=== PATIENT | female | born 1955 | race Two or more races ===

== ENCOUNTER → 2024-07-19 | Outpatient (CLI) | payer OTHER, SELFPAY ==
[2024-07-19 11:19] LABS: Glucose Estimated Average 131 mg/dL (80-131); Hemoglobin A1C 6.2 % Hgb (4.8-6.0)
[2024-07-19 11:26] LABS: Alanine Aminotransferase 32 U/L (10-49); Albumin, Serum 4.3 gm/dL (3.4-4.8); Albumin/Globulin Ratio 1.9 (1.2-2.2); Alkaline Phosphatase 101 U/L (46-116); Anion Gap 5 (7-16); Aspartate Amino Transferase 23 U/L (0-34); BUN/Creatinine Ratio 24 Ratio (12-20); Bilirubin,Total 0.6 mg/dL (0.3-1.2); Blood Urea Nitrogen 12 mg/dL (9-23); Carbon Dioxide 27.6 mMol/L (20.0-31.0); Cardiac Risk Estimate 4.5 RATIO (3.7-5.6); Chloride 100 mMol/L (98-107); Cholesterol 321 mg/dL (132-200); Creatinine (Component) 0.5 mg/dL (0.6-1.3); Globulin 2.3 gm/dL (2.3-3.5); Glucose 130 mg/dL (74-106); HDL Cholesterol 72 mg/dL (40-60); LDL Cholesterol,Calculated 225 mg/dL (0-130); Osmolality,Calculated 268 (275-295); Potassium 4.3 mMol/L (3.4-5.1); Sodium 133 mMol/L (136-145); Thyroid Stimulating Hormone 0.56 uIU/mL (0.55-4.78); Total Protein 6.6 gm/dL (5.7-8.2); Triglycerides 121 mg/dL (30-150); eGFR > 60 See Note
[2024-07-19 11:28] LABS: Creatinine MALB Rnd Ur 35 mg/dL (30-125); Microalbumin, Random Urine < 3 mg/L (0-300)
== END | disposition home or self-care (01) ==
PROVIDERS: PCP Internal Medicine; Referring Provider Internal Medicine; Visit Provider Internal Medicine
DX: E03.9 Hypothyroidism, unspecified (principal); I10 Essential (primary) hypertension; E78.5 Hyperlipidemia, unspecified; E11.9 Type 2 diabetes mellitus without complications
CPT/HCPCS: 36415; 80053; 80061; 82043; 82570; 83036; 84443

== ENCOUNTER 2024-08-08 08:35 | Outpatient (RCR) | payer OTHER, MEDICAID, SELFPAY ==
--- NOTE | 2024-08-08 13:29 | CTCCONSULT_ITS ---
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 Patient is here to establish care. Patient says th at she does not know why she is sent here when she is told she does not have cancer. Patient denies any family history of breast cancer. 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 GI: No nausea, vomiting, diarrhea or constipation. CVS: No palpitations or angina pains. Respiratory: No cough, chest pain or shortness of breath. VITAL SIGNS: Date 08/08/2024 Time 8:52 AM Vital Signs, Weight and PS ? ??T (F) (F) 98.9 ??P 65 ??B/P (mmHg) 120/58 ??Height (in) (inch) 60 ??Weight (lb) (lb) 142 ??BSA(D) (m*2) 1.61 PHYSICAL EXAMINATION: Conjunctivae is white. Oral cavity is dry. Chest is clear to auscultation. No wheezes or rales audible. CVS: Rhythm regular, no murmurs or gallops present. Abdomen is soft. No hepatosplenomegaly. Extremities: No pedal edema or cyanosis. Breast examination no palpable mass in chest area or axilla suspicious for cancer LABORATORY DATA: Date Time ASSESSMENT and plan: #1 papilloma in the breast Patient have solitary papilloma There was no atypia noted Patient have no self or family history of breast cancer I reviewed pathology report available in the chart. Patient have a solitary papilloma and there was no atypia or DCIS noted There is no antiendocrine therapy indicated in this case Advised patient to get screening mammograms every year Patient can follow-up with her primary care Thank you for your consultation ORDERS: RETURN TO CLINIC: Discharged back to primary care cc: RONEL GAUTHIER, Referring: NIEVES GAUTHIER Electronically signed by Dr. De Oliveira Electronically Signed 08/08/2024 at 1:27 PM Momo De Oliveira MD Patient: ARTURO QUINTERO : 1955 MR#: [id number] Account: [id number] FOLLOW UP NOTE Page 4 of 4
== END 2024-08-17 23:59 | disposition home or self-care (01) ==
LOC: SCTC 08:35
PROVIDERS: PCP Internal Medicine; Referring Provider Internal Medicine; Visit Provider Internal Medicine Hematology & Oncology
DX: D24.2 Benign neoplasm of left breast (principal)
CPT/HCPCS: 99213; G0463

== ENCOUNTER → 2024-12-24 | Outpatient (CLI) | payer MEDICARE, MEDICAID, SELFPAY ==
[2024-12-24 10:07] LABS: Collection Type, Urine Clean Catch
[2024-12-24 10:44] LABS: Basophils # (Auto) 0.1 Thou/mm3 (0.0-0.2); Basophils % (Auto) 1 % (0-2.5); Eosinophils # (Auto) 0.2 Thou/mm3 (0.0-0.5); Eosinophils % (Auto) 2 % (0-10); Hematocrit 38.1 % (36.0-46.0); Hemoglobin 13.1 g/dL (12.0-16.0); Immature Granulocytes % (Auto) 0 % (0-0); Immature Granulocytes Auto 0.01 Thou/mm3 (0.00-0.00); Lymphocytes # (Auto) 2.8 Thou/mm3 (1.0-4.8); Lymphocytes % (Auto) 36 % (10-50); Mean Corpuscular HGB Conc 34.4 g/dl (31.0-37.0); Mean Corpuscular Hemoglobin 30.3 pg (25.0-35.0); Mean Corpuscular Volume 88 fL (80-100); Monocytes # (Auto) 0.6 Thou/mm3 (0.0-0.8); Monocytes % (Auto) 8 % (0-12); Neutrophils % (Auto) 52 % (37-80); Nucleated Red Blood Cell % 0 /100 WBC (0); Platelet Count 244 Thou/mm3 (140-440); RDW Standard Deviation 42.7 fL (36.4-46.3); Red Blood Count 4.33 Miln/mm3 (4.00-5.20); White Blood Count 7.6 Thou/mm3 (3.6-11.0)
[2024-12-24 10:55] LABS: Bilirubin,Urine Negative (Negative); Blood,Urine Negative (Negative); Clarity,Urine Clear (Clear/Hazy); Color,Urine Lt-Yellow (Lt Yel-Yel); Glucose, Urine Negative (Negative); Ketones,Urine Negative (Negative); Leukocyte Esterase,Urine Negative (Negative); Nitrite,Urine Negative (Negative); PH,Urine 7.5 (5.0-7.0); Protein,Urine Negative (Neg - Trace); RBC,Urine 2 /hpf (0-3); Specific Gravity,Urine 1.016 (1.001-1.035); Squamous Epithelial Cell,Urine 6 /hpf (0-5); Urobilinogen,Urine Negative mg/dL (0.0-1.0); WBC,Urine 2 /hpf (0-5)
[2024-12-24 10:59] LABS: Glucose Estimated Average 123 mg/dL (80-131); Hemoglobin A1C 5.9 % Hgb (4.8-6.0)
[2024-12-24 11:06] LABS: Vitamin B12 800 pg/mL (211-911); Vitamin D 25 Hydroxy Total 38.6 ng/mL (7.3-40.2)
[2024-12-24 12:10] LABS: Alanine Aminotransferase 16 U/L (10-49); Albumin, Serum 3.9 gm/dL (3.4-4.8); Albumin/Globulin Ratio 1.8 (1.2-2.2); Alkaline Phosphatase 102 U/L (46-116); Anion Gap 8 (7-16); Aspartate Amino Transferase 15 U/L (0-34); BUN/Creatinine Ratio 28 Ratio (12-20); Bilirubin,Total 0.9 mg/dL (0.3-1.2); Blood Urea Nitrogen 11 mg/dL (9-23); Calcium 9.2 mg/dL (8.3-10.6); Calcium (Corrected) 9.3 mg/dL (8.5-10.1); Carbon Dioxide 28.3 mMol/L (20.0-31.0); Cardiac Risk Estimate 3.5 RATIO (3.7-5.6); Chloride 102 mMol/L (98-107); Cholesterol 272 mg/dL (132-200); Creatinine (Component) 0.4 mg/dL (0.6-1.3); Globulin 2.2 gm/dL (2.3-3.5); Glucose 98 mg/dL (74-106); HDL Cholesterol 77 mg/dL (40-60); LDL Cholesterol,Calculated 169 mg/dL (0-130); Osmolality,Calculated 275 (275-295); Sodium 138 mMol/L (136-145); Thyroid Stimulating Hormone 0.78 uIU/mL (0.55-4.78); Total Protein 6.1 gm/dL (5.7-8.2); Triglycerides 132 mg/dL (30-150); Uric Acid 4.1 mg/dL (3.1-7.8); eGFR > 60 See Note
== END | disposition home or self-care (01) ==
PROVIDERS: PCP Internal Medicine; Referring Provider Internal Medicine; Visit Provider Internal Medicine
DX: Z00.00 Encounter for general adult medical examination without abnormal findings (principal)
CPT/HCPCS: 36415; 80053; 80061; 81001; 82306; 82607; 83036; 84443; 84550; 85025

== ENCOUNTER 2025-04-07 00:56 | Inpatient (IN) | payer MEDICARE, MEDICAID, SELFPAY ==
[2025-04-07] VITALS (9 sets, daily range): BP systolic 125–165; BP diastolic 61–86; PULSE 58–82; RESP 16–88; TEMP 36.2–37.5; O2SAT 91–97; BMI 27.3; BMI 28.2
--- NOTE | 2025-04-07 | XR_ITS ---
Examination: Abdomen AP single view Technique: AP portable supine abdomen, single view Exam date and time: April 07, 2025, 1622 hours INDICATIONS: Abdominal pain and distention this week, 6 hour delayed film for small bowel series today. FINDINGS: Contrast distended small bowel loops There is contrast in the right and transverse colon IMPRESSION: Small bowel obstruction but incomplete
--- NOTE | 2025-04-07 | XR_ITS ---
Examination: Abdomen AP single view Technique: AP portable supine abdomen, single view Exam date and time: April 07, 2025 1429 hours INDICATIONS: Abdominal pain and distention this week, small bowel obstruction pattern on CT abdomen pelvis 3:25 AM this morning, 4 hour delayed film post small bowel series FINDINGS: Contrast now present throughout the colon IMPRESSION: Negative for complete small bowel obstruction, no further films are needed
--- NOTE | 2025-04-07 | XR_ITS ---
Examination: Abdomen AP single view Technique: AP portable supine abdomen, single view Exam date and time: April 07, 2025 1234 hours INDICATIONS: Abdominal distention today, 3 hour delayed film post small bowel series today FINDINGS: Contrast in mildly distended jejunal small bowel loops IMPRESSION: Contrast in mildly distended jejunal small bowel loops, multiple additional delayed films will be obtained
--- NOTE | 2025-04-07 01:41 | PD.EDABDPN ---
ED Abdominal Pain RME/HPI General Chief Complaint: Abdominal Pain Stated complaint: ABD PAIN AND VOMITING Time seen by provider: 04/07/25 01:43 Arrival date/time: 04/07/25 00:56 RME / HPI RME / HPI narrative: This section includes all my notes and documentations, including HPI, PE, and ED course. Fausto Nicole MD HPI: 69yo female here with abdominal pain x the last few hours. Difficult to localize. Patient does have nausea and vomiting. No diarrhea. PSH includes hysterectomy. No hematemesis or coffee-ground emesis. No rectal bleeding or tarry stools. No other complaints reported. ROS: All negative except as documented in HPI. Physical Exam: General: Alert and oriented. In severe pain. Eyes: Conjunctivae and lids clear. ENT: No nasal congestion. Neck: Supple. Heart: RRR. Lungs: No respiratory distress. Good air movement. No rhonchi, wheezing, rales. Abdomen: Soft with severe tenderness, difficult to localize. Decreased bowel sounds. No distension. No rebound or guarding. Back: No CVA tenderness. Skin: Warm and dry. Neuro: Alert and oriented X 3. I reviewed all diagnostic test results. My review of the US gallbladder report is: Cholecystitis. My review of the CT abdomen pelvis report is SBO. Blood and urine test unremarkable. At this point, diagnoses include SBO (small bowel obstruction), Cholecystitis. Treatment here included Morphine, Zofran, Zosyn, and NS. Patient felt better. I discussed the case with our general surgeon, Dr. Ford, and our hospitalist. About the presentation and exam and diagnostics and treatments here. And need of further care in the hospital. Will accept the patient. Fausto Nicole MD Related Data Home Medications ?Medication ?Instructions ?Recorded ?Confirmed Levothyroxine * (SYNTHROID *) 25 mcg PO QDAY HYPOTHYROID #0 tabs 03/10/14 06/28/24 atorvastatin 20 mg tablet 20 mg PO QDAY 06/28/24 06/28/24 dicyclomine 10 mg capsule 10 mg PO DAILY PRN Abdominal 06/28/24 06/28/24 Distention semaglutide 0.25 mg or 0.5 mg (2 0.25 mg subcut QWEEK 06/28/24 06/28/24 mg/3 mL) subcutaneous pen injector ([employer]) valsartan 80 mg tablet 80 mg PO QDAY 06/28/24 06/28/24 valacyclovir 1 gram tablet 1 mg PO QDAY 07/02/24 07/02/24 Allergies Allergy/AdvReac Type Severity Reaction Status Date / Time No Known Allergies Allergy Verified 07/02/24 11:43 Review of Systems Review of Systems Systems Reviewed: All systems reviewed, normal except as documented Past Medical History Past Medical History NEUROLOGIC: Negative Neurological Disorders or Seizures CARDIAC: Positive Cardiac Disorders, Hypercholesterolemia, Hypertension and Varicose Veins; Negative Congestive Heart Failure RESPIRATORY: Negative Chronic Obstructive Pulmonary Disease (COPD) GASTROINTESTINAL: Positive Gastrointestinal Disorders and Colitis GENITOURINARY: Negative Genitourinary Disorders or Renal Disease REPRODUCTIVE: Positive Genital Herpes and Previous Pregnancies MUSCULOSKELETAL: Positive Musculoskeletal Disorders and Arthritis ENT: Positive Cataracts ENDOCRINE: Positive Endocrine Disorders and Diabetes Mellitus Type 2; Negative Diabetes Mellitus Type 1 HEMATOLOGIC: Negative Blood Disorders OTHER HISTORY: Positive Hospitalization (surgery); Negative Autoimmune Disease, Shingles, Blood Transfusions, Blood Transfusion Reaction, Anesthesia Reactions or Cancer Family History FAMILY HISTORY: Positive Family Cardiac Disorders, Family Cancer and Family Surgery; Negative Family Psychiatric Problems, Family Respiratory Disorders, Family Gastrointestinal Problems or Family Anesthesia Reaction Surgical History SURGICAL: Positive Bowel Surgery (colon resection) and Hysterectomy (with BSO) Social History SMOKING STATUS: Never smoker ED Exam Narrative Physical exam: As noted in HPI. Course Quality Measures none Orders Category Date Time Status Bedside COVID-19 Antigen Test NOW Care 04/07/25 01:44 Completed Bedside Influenza A&B Antigen Test NOW Care 04/07/25 01:44 Completed COVID-19 Screening Questionnaire NOW Care 04/07/25 04:30 Active Decision to Admit X1 Care 04/07/25 04:30 Completed Insert NG / OG tube NOW Care 04/07/25 04:31 Active Saline [Insert IV] NOW Care 04/07/25 01:44 Active Consult to General Surgery Stat Cons 04/07/25 04:[address] abdomen pelvis wo con Stat Exams 04/07/25 01:44 Taken US gall bladder Stat Exams 04/07/25 01:44 Taken Bilirubin,Direct Stat Lab 04/07/25 01:51 Completed CBC Stat Lab 04/07/25 01:51 Completed CMP [Comprehensive Metabolic Panel] Stat Lab 04/07/25 01:51 Completed Lipase Stat Lab 04/07/25 01:51 Completed Magnesium Stat Lab 04/07/25 01:51 Completed UA, C/S IF [Urinalysis, C/S if Indicated] Stat Lab 04/07/25 01:50 Completed Morphine Inj Med 04/07/25 01:44 Discontinued 4 mg IVP X1 ONE Ondansetron Inj [Zofran Inj] Med 04/07/25 01:44 Discontinued 4 mg IVP X1 ONE Piper/Tazo 3.375 gm Premix [Zosyn] Med 04/07/25 03:58 Discontinued 3.375 gm in 50 ml IV X1 Sodium Chloride 0.9% 1000 ml [Ns] 1,000 ml Med 04/07/25 01:44 Discontinued IV 999 mls/hr Oxygen Delivery PRN RT 04/07/25 02:04 Active Vital Signs Vital signs: Vital Signs Temperature 99.5 F 04/07/25 01:07 Pulse Rate 82 04/07/25 01:07 Respiratory Rate 18 04/07/25 01:07 Blood Pressure 165/81 H 04/07/25 01:07 Pulse Oximetry (%) 95 04/07/25 01:07 Oxygen Delivery Method Room Air 04/07/25 01:07 Abdominal Pain MDM MDM Narrative MDM Narrative:: 69yo female here with abdominal pain x the last few hours. Difficult to localize. Patient does have nausea and vomiting. No diarrhea. PSH includes hysterectomy. No hematemesis or coffee-ground emesis. No rectal bleeding or tarry stools. No other complaints reported. Patient data External records reviewed:: [facility] previous records (Per chart review, patient has no previous ED visits or admissions to this facility.) Clinical information provided by:: patient Social determinants that could affect healthcare access:: none Patient has the following chronic illnesses:: DM, HTN, HLD How is presenting disease/condition affected by chronic disease/condition?: uneffected by Evaluation data The following diagnostics were reviewed and interpreted by me:: lab results and radiology exam(s) Lab and/or radiology exams considered but not ordered:: none Interpretation Summary: I reviewed all diagnostic test results. My review of the US gallbladder report is: Cholecystitis. My review of the CT abdomen pelvis report is SBO. Blood and urine test unremarkable. Medications / Prescriptions Medications or Prescriptions considered but not ordered:: none Medication administrations:: Medication Administration History Discontinued Medications Sodium Chloride (Ns) 1,000 mls @ 999 mls/hr IV .Q1H1M ONE Stop: 04/07/25 02:44 Last Infusion: 04/07/25 02:53 Dose: Infused Documented By: Admin: 04/07/25 01:57 Dose: 999 mls/hr Documented By: BD Piperacillin/Tazobactam/Dextrose (Zosyn) 3.375 gm in 50 mls @ 100 mls/hr IV X1 ONE Stop: 04/07/25 04:27 Last Admin: 04/07/25 04:22 Dose: 100 mls/hr Documented By: CVL Morphine Sulfate (Morphine Sulf Inj 10 Mg/Ml Vial) 4 mg IVP X1 ONE Stop: 04/07/25 01:45 Last Admin: 04/07/25 01:58 Dose: 4 mg Documented By: BD Ondansetron HCl (Ondansetron Inj 2 Mg/Ml Inj 2 Ml) 4 mg IVP X1 ONE; Protocol Stop: 04/07/25 01:45 Last Admin: 04/07/25 01:58 Dose: 4 mg Documented By: BD Morphine, Zofran, Zosyn, NS, NG tube. Consultations Consultation(s) initiated? (list below): Yes Consultation #1 (Physician, Specialty, Details): I discussed the case with our general surgeon, Dr. Ford, and our hospitalist. About the presentation and exam and diagnostics and treatments here. And need of further care in the hospital. Will accept the patient. Diagnosis Differential diagnosis abdominal pain: acute appendicitis, calculus of kidney, constipation, diverticulitis, gastroenteritis, pancreatitis, small bowel obstruction and other (Biliary colic, PUD, gastritis, GERD) Most likely diagnosis given after review of the tests above:: SBO (small bowel obstruction), Cholecystitis Admission Indicated Admission indicated?: indicated Explain why admission is indicated or not indicated:: SBO (small bowel obstruction), Cholecystitis Admission Request Was there a request for admission?: Yes Admission Attestation Admission request attestation: Discussed case with Hospitalist service regarding admission. Discussed patients ED course, exam findings, labs, and radiology results. The Hospitalist [agrees] to accept the patient for admission. Disposition Plan Disposition Plan: Admit Discharge Plan Plan Patient Disposition: Admit Acute Care w/in Hospital Prescriptions/Referrals Prescriptions/Med Rec: No Action Levothyroxine * (SYNTHROID *) 25 MCG tablet 25 mcg PO QDAY Qty: 0 atorvastatin 20 mg Tablet 20 mg PO QDAY valsartan 80 mg Tablet 80 mg PO QDAY dicyclomine 10 mg Capsule 10 mg PO DAILY PRN (Reason: Abdominal Distention) Ozempic 0.25 mg or 0.5 mg (2 mg/3 mL) pen injector 0.25 mg SUBCUT QWEEK Patient Comments: INJECT 0.5MG SUBCUTANEOUSLY ONCE WEEKLY valacyclovir 1 gram tablet 1 mg PO QDAY Patient Comments: TAKE 1 TABLET BY MOUTH EVERY DAY Referrals: No Primary/Family,Physician [Primary Care Provider] - In 1 week Problem List Clinical Impression: SBO (small bowel obstruction), Cholecystitis Patient/Caregiver Discharge Instructions Print Language: Portuguese Stand Alone Forms: Essie Award Info., Patient Portal Info Letter
--- NOTE | 2025-04-07 01:44 | XR_ITS ---
Examination: Abdomen sonogram, Limited Date and time of exam: April 07, 2025, 0206 hours INDICATIONS: Right upper abdominal pain and vomiting today Technique: Real-time egan scale transabdominal sonographic images of the upper abdomen obtained. Findings: Normal gallbladder Normal common bile duct 0.4 cm Pancreatic head 3.1 cm Liver 13.1 cm 5.6 cm complex cystic lesion with septations Normal hepatopedal portal venous flow Patent IVC IMPRESSION: Recommend MRI abdomen follow up pre and postcontrast to assess complex cystic mass in the liver
--- NOTE | 2025-04-07 01:44 | XR_ITS ---
Examination: CT abdomen and pelvis without contrast. Coronal 3-D reconstructions. Sagittal 2-D reconstructions. Date and time of exam:April 07, 2025, 0325 hours INDICATIONS: Abdominal pain and vomiting onset today. CTDI: vol (mGy): 7.61 DLP: (mGycm): 429. Technique: Axial images of the abdomen have been obtained, 3 mm slice thickness Intravenous contrast material has not been administered. Low dose protocols were performed. One or more of the following dose reduction techniques were used; automated exposure control, adjustment of the mA and/or KV according to patient size, use of iterative reconstruction technique. Findings: Prominent vascular congestion 34 mm low-density liver lesion No gallstones Spleen not enlarged No pancreatic mass No hydronephrosis Multiple fluid distended small bowel loops No pericecal inflammatory change Urinary bladder intact Bilateral fat-containing inguinal hernias Prominent osteopenia IMPRESSION: Recommend MRI abdomen follow up pre and post contrast to assess complex cystic lesion in the liver High-grade small bowel obstruction pattern
[2025-04-07] MEDS: SODIUM CHLORIDE 0.9% 1000 ML 1,000 ML 999 ML IV (01:57)
[2025-04-07] MEDS: MORPHINE SULF INJ 10 MG/ML VIAL 4 MG IVP (01:58)
[2025-04-07] MEDS: ONDANSETRON INJ 2 MG/ML INJ 2 ML 4 MG IVP ×2 (01:58→10:55)
[2025-04-07 02:04] LABS: Collection Type, Urine Clean Catch
[2025-04-07 02:06] LABS: Basophils # (Auto) 0.1 Thou/mm3 (0.0-0.2); Basophils % (Auto) 1 % (0-2.5); Eosinophils # (Auto) 0.1 Thou/mm3 (0.0-0.5); Eosinophils % (Auto) 1 % (0-10); Hematocrit 43.1 % (36.0-46.0); Hemoglobin 14.5 g/dL (12.0-16.0); Immature Granulocytes Auto 0.03 Thou/mm3 (0.00-0.00); Lymphocytes # (Auto) 2.4 Thou/mm3 (1.0-4.8); Lymphocytes % (Auto) 20 % (10-50); Mean Corpuscular HGB Conc 33.6 g/dl (31.0-37.0); Mean Corpuscular Hemoglobin 30.1 pg (25.0-35.0); Mean Corpuscular Volume 89 fL (80-100); Monocytes # (Auto) 0.7 Thou/mm3 (0.0-0.8); Monocytes % (Auto) 6 % (0-12); Neutrophils # (Auto) 8.6 Thou/mm3 (1.8-7.7); Neutrophils % (Auto) 72 % (37-80); Nucleated Red Blood Cell # 0.00 Thou/mm3 (0.00-0.00); Nucleated Red Blood Cell % 0 /100 WBC (0); Platelet Count 210 Thou/mm3 (140-440); RDW Standard Deviation 43.8 fL (36.4-46.3); Red Blood Count 4.82 Miln/mm3 (4.00-5.20); White Blood Count 11.9 Thou/mm3 (3.6-11.0)
[2025-04-07 02:13] LABS: Amorphous Crystals,Urine Present (Absent); Bilirubin,Urine Negative (Negative); Blood,Urine Negative (Negative); Clarity,Urine Turbid (Clear/Hazy); Color,Urine Lt-Yellow (Lt Yel-Yel); Culture Indicated,Urine Not Indicated; Glucose, Urine Negative (Negative); Ketones,Urine Negative (Negative); Leukocyte Esterase,Urine Negative (Negative); Nitrite,Urine Negative (Negative); PH,Urine 8.0 (5.0-7.0); Protein,Urine Trace (Neg - Trace); RBC,Urine 1 /hpf (0-3); Specific Gravity,Urine 1.020 (1.001-1.035); Squamous Epithelial Cell,Urine 6 /hpf (0-5); Urobilinogen,Urine Negative mg/dL (0.0-1.0); WBC,Urine 2 /hpf (0-5)
[2025-04-07 02:31] LABS: Alanine Aminotransferase 24 U/L (10-49); Albumin, Serum 4.4 gm/dL (3.4-4.8); Albumin/Globulin Ratio 1.8 (1.2-2.2); Alkaline Phosphatase 97 U/L (46-116); Anion Gap 11 (7-16); Aspartate Amino Transferase 20 U/L (0-34); BUN/Creatinine Ratio 28 Ratio (12-20); Bilirubin,Direct 0.1 mg/dL (0.0-0.3); Bilirubin,Total 0.6 mg/dL (0.3-1.2); Blood Urea Nitrogen 17 mg/dL (9-23); Calcium 9.3 mg/dL (8.3-10.6); Calcium (Corrected) 9.3 mg/dL (8.5-10.1); Carbon Dioxide 29.6 mMol/L (20.0-31.0); Chloride 102 mMol/L (98-107); Creatinine (Component) 0.6 mg/dL (0.6-1.3); Estimated Creatinine Clearance 74.7 mL/min (>60); Globulin 2.4 gm/dL (2.3-3.5); Glucose 161 mg/dL (74-106); Lipase 25 U/L (12-53); Magnesium 1.9 mg/dL (1.6-2.6); Osmolality,Calculated 289 (275-295); Potassium 3.7 mMol/L (3.4-5.1); Sodium 143 mMol/L (136-145); Total Protein 6.8 gm/dL (5.7-8.2); eGFR > 60 See Note
--- NOTE | 2025-04-07 03:25 | PRELIM_ITS ---
Right upper quadrant abdominal ultrasound with Doppler and wave Doppler spectral analysis. April 07, 2025 0206 hours Clinical history: RUQ tenderness Technique: Grayscale and color flow images of the right upper quadrant are provided. Hepatic and portal veins were also imaged with color flow images. Comparison: None. Findings: The liver is normal in echogenicity. Hypoechoic lesion in the right liver measures 5.6 x 4.3 x 4.6 cm. No intrahepatic biliary ductal dilatation. Gallbladder wall thickening. No gallbladder calculus or pericholecystic fluid is demonstrated. The common bile duct is normal in caliber at 4.2 mm. Mildly hy perechoic pancreas. The imaged portions of the right kidney are within normal limits. The portal vein is patent with hepatopetal flow normal with Doppler spectral analysis. The IVC is patent. The hepatic veins are patent. Casper sign is not available at the time of this report. Impression: Complex cystic lesion in the liver, correlation with MRI for characterization is recommended. Gallbladder wall thickening, acute cholecystitis cannot be excluded. Mildly hyperechoic pancreas suspicious for pancreatitis. Please, correlate clinically. Report Electronically Signed By: Junaid Woo 04/07/2025 3:24:48 AM [EST]
[2025-04-07] MEDS: PIPER/TAZO 3.375 GM PREMIX 3.375 GM/50 ML BAG IV (04:22)
--- NOTE | 2025-04-07 04:28 | PRELIM_ITS ---
CT scan of the abdomen and pelvis without intravenous contrast (axial sections with sagittal and coronal reformats); dated April 07, 2025 at 0325 hours Clinical History: Abdominal pain. Comparison: None. Findings: The lung bases are clear. The gallbladder, pancreas, spleen, kidneys and adrenals are unremarkable on this noncontrast study. Hypodense right liver lobe lesion measuring 5.2 cm. Dilated small bowel loops measuring up to 4.4 cm with air-fluid levels within and transition point in the pelvis. S/p hysterectomy. No evidence of appendicitis. There is no mesenteric or retroperitoneal adenopathy. The urinary bladder is nondistended, limited evaluation. There is no free fluid or free air. The osseous structures are unremarkable. Bilateral fat-containing inguinal hernias without evidence of inflammation. Impression: Small bowel obstruction. Indeterminate hypodense liver lesion, follow-up with MRI for characterization is recommended. Discussion Details: Results verbally communicated to : Dr. Nicole at 04:24 AM 04/07/2025 Report Electronically Signed By: Junaid Woo 04/07/2025 4:28:23 AM [EST]
--- NOTE | 2025-04-07 04:59 | PD.RESHP ---
Documentation for date of: 04/07/25 HPI History of Present Illness Chief complaint: Abdominal pain History of present illness: 69-year-old female with past medical history of dts-rcsikcw-pqtcsdddc type 2 diabetes, hypertension, hypothyroidism, diverticulosis presenting to the ED on 04/07 with abdominal pain. Patient states that the pain started on roughly 1 week ago but at that time the pain was not as severe as it is currently. Patient states that initially she just drank tea which alleviated her symptoms; however, on the afternoon of 04/06 she started experiencing severe abdominal pain which she rates at 9 out of 10. Patient states that her last bowel movement was sometime around 6 PM and that she has yet to pass any gas since that episode. Patient has been having vomiting episodes associated with the pain; states that she has vomited roughly anywhere from 5-10 times tonight. Patient denies having any diarrhea, fever/chills, melena, hematochezia, hematemesis. Of note, patient has significant history of intra-abdominal surgeries with bowel resection about 10 years ago with 1 month of requiring colostomy, hysterectomy about 30 years ago. Patient denies having any significant family history of colorectal cancer and otherwise denies having any concerning cardiac symptoms. Patient also has been on Ozempic (does not know dose) for about 4 months. Medical history: As stated above Surgical history: As stated above, also patient has history of breast mass but denies breast cancer Allergies: NKDA Medications: Pending med rec Family history: Patient's brother has history of prostate cancer, significant family history of coronary artery disease with parent having CABG Social history: Patient currently works in the [employer], denies any alcohol, tobacco or illicit drug use. Patient lives in [place] and lives alone. ROS: All 12 systems assessed and the patient denies unless otherwise stated in HPI In the ED, patient presented hypertensive 165/81, heart rate of 82, respiratory rate 18, mildly febrile at 99.5 ?F but saturating 95 on room air. Pertinent lab findings included WBC of 11.9, glucose 161, magnesium 1.9, T. bili 0.6, AST 20, ALT 24, lipase of 25. Urinalysis does not show any signs of infection. Ultrasound of the abdomen shows complex cystic lesion in the liver, gallbladder wall thickening and mildly hyper echoic pancreas. CT abdomen pelvis shows small bowel obstruction and hypodense liver lesion. Patient will be admitted for small bowel obstruction and will have NG tube placed for bowel decompression and surgery consulted for recommendations. Exam Vital Signs Temp Pulse Resp BP Pulse Ox O2 Del Method 97.8 F 58 L 18 152/85 H 97 Room Air 04/07/25 04:09 04/07/25 04:09 04/07/25 04:09 04/07/25 04:09 04/07/25 04:09 04/07/25 04:09 Narrative Exam Physical Exam: GENERAL: Awake, answering questions appropriately, appears stated age HEENT: NC/AT. Moist mucosa. PERRLA/EOMI. CARDIO: Heart RRR, no obvious murmurs, no JVD. PULM: No coughing or visible SOB. Lungs CTA B/L. GI: Abdomen soft, tenderness to palpation left upper and left lower quadrant with guarding otherwise no rigidity noted. Hypoactive bowel sounds SKIN/MSK/EXT: No wounds/discoloration/rashes/edema/amputations. +Pedal pulses present B/L. NEURO: Oriented x3, Moves extremities x4, no focal neurologic deficits noted. Results: Labs 04/07/25 05:22 04/07/25 05:22 Labs: Short CBC 04/07/25 Range/Units 01:51 WBC 11.9 H (3.6-11.0) Thou/mm3 Hgb 14.5 (12.0-16.0) g/dL Hct 43.1 (36.0-46.0) % Plt Count 210 (140-440) Thou/mm3 BMP 04/07/25 01:51 Sodium 143 Potassium 3.7 Chloride 102 Carbon Dioxide 29.6 BUN 17 Creatinine 0.6 Glucose 161 H Calcium 9.3 Liver Function 04/07/25 Range/Units 01:51 Total Bilirubin 0.6 (0.3-1.2) mg/dL Direct Bilirubin 0.1 (0.0-0.3) mg/dL AST 20 (0-34) U/L ALT 24 (10-49) U/L Alkaline Phosphatase 97 (46-116) U/L Albumin 4.4 (3.4-4.8) gm/dL Urine 04/07/25 Range/Units 01:50 Urine Color Lt-Yellow (Lt Yel-Yel) Urine Clarity Turbid A (Clear/Hazy) Urine pH 8.0 H (5.0-7.0) Ur Specific [place] 1.020 (1.001-1.035) Urine Protein Trace (Neg - Trace) Urine Glucose (UA) Negative (Negative) Quality Measures Quality Measures none Advance care planning discussed with:: patient Medications Home Medications and Allergies Home Medications ?Medication ?Instructions ?Recorded ?Confirmed ?Type Levothyroxine * (SYNTHROID *) 25 mcg PO QDAY HYPOTHYROID #0 tabs 03/10/14 04/07/25 History atorvastatin 20 mg tablet 20 mg PO QDAY 06/28/24 04/07/25 History Held on 04/07/25. Instructions: Order Change dicyclomine 10 mg capsule 10 mg PO DAILY PRN Abdominal 06/28/24 04/07/25 History Held on 04/07/25. Distention Instructions: Order Change semaglutide 0.25 mg or 0.5 mg (2 0.25 mg subcut QWEEK 06/28/24 04/07/25 History mg/3 mL) subcutaneous pen injector ([employer]) Held on 04/07/25. Instructions: Doctor's Order valsartan 80 mg tablet 80 mg PO QDAY 06/28/24 04/07/25 History valacyclovir 1 gram tablet 1 mg PO QDAY 07/02/24 04/07/25 History atorvastatin 80 mg tablet 80 mg PO HS 04/07/25 04/07/25 History dicyclomine 20 mg tablet 20 mg PO DAILY PRN abdominal pain 04/07/25 04/07/25 History ergocalciferol (vitamin D2) 1,250 1,250 mcg PO QWEEK 04/07/25 04/07/25 History mcg (50,000 unit) capsule Allergies Allergy/AdvReac Type Severity Reaction Status Date / Time No Known Allergies Allergy Verified 07/02/24 11:43 Visit Medications Acetaminophen (Acetaminophen 325 Mg Tablet) 650 mg PO Q6H PRN PRN Reason: PAIN SCALE 1-3 (mild Stop: 05/07/25 04:54 Dextrose (Dextrose 50%-Water Inj 50 Ml Syringe) 25 ml IV Q15MIN PRN PRN Reason: BG 50-70 responsive npo pt Stop: 05/07/25 04:54 Dextrose (Dextrose 50%-Water Inj 50 Ml Syringe) 50 ml IV Q15MIN PRN PRN Reason: BG <50 OR BG <70 & pt unresponsive Stop: 05/07/25 04:54 Enoxaparin Sodium (Enoxaparin Sod Inj 40 Mg/0.4 Ml Syringe) 40 mg SC QDAY ALYSSA Stop: 04/21/25 08:59 Glucagon (Glucagon Inj 1 Mg Vial) 1 mg IM Q15MIN PRN PRN Reason: BG <70, and no IV access Magnesium Sulfate (Magnesium Sulfate Ivpb) 4 gm in 50 mls @ 12.5 mls/hr IV X1 ONE Stop: 04/07/25 08:56 Insulin Human Lispro (Insulin Lispro (Admelog) 1 Unit/0.01 Ml Unit) 0 unit SC Q6HR ALYSSA; Protocol Stop: 05/07/25 05:59 Levothyroxine Sodium (Levothyroxine Sodium 25 Mcg Tablet) 25 mcg PO ACBR ALYSSA Stop: 05/07/25 05:59 Morphine Sulfate (Morphine Sulf Inj 10 Mg/Ml Vial) 1 mg IVP Q6H PRN PRN Reason: PAIN SCALE 7-10 (Severe Stop: 04/12/25 04:54 Ondansetron HCl (Ondansetron Inj 2 Mg/Ml Inj 2 Ml) 4 mg IVP Q6H PRN; Protocol PRN Reason: NAUSEA OR VOMITING Stop: 05/07/25 04:54 Discontinued Medications Sodium Chloride (Ns) 1,000 mls @ 999 mls/hr IV .Q1H1M ONE Stop: 04/07/25 02:44 Last Infusion: 04/07/25 02:53 Dose: Infused Piperacillin/Tazobactam/Dextrose (Zosyn) 3.375 gm in 50 mls @ 100 mls/hr IV X1 ONE Stop: 04/07/25 04:27 Last Admin: 04/07/25 04:22 Dose: 100 mls/hr Morphine Sulfate (Morphine Sulf Inj 10 Mg/Ml Vial) 4 mg IVP X1 ONE Stop: 04/07/25 01:45 Last Admin: 04/07/25 01:58 Dose: 4 mg Ondansetron HCl (Ondansetron Inj 2 Mg/Ml Inj 2 Ml) 4 mg IVP X1 ONE; Protocol Stop: 04/07/25 01:45 Last Admin: 04/07/25 01:58 Dose: 4 mg Assessment & Plan Plan 69-year-old female with past medical history of uqu-ngatmgt-iuhacowrr type 2 diabetes, hypertension, hypothyroidism, diverticulosis presenting to the ED with abdominal pain will be admitted for small bowel obstruction and will have NG tube placed for bowel decompression and surgery consulted for recommendations. #SBO #Leukocytosis As noted above, patient has been having abdominal pain on and off for about a week which has progressively worsened Of note, patient has intra-abdominal surgeries as noted above On assessment, patient has hypoactive bowel sounds and guarding especially in the left upper and lower quadrant with noted tenderness Leukocytosis likely secondary to acutely ill status, reactive versus underlying infection Ultrasound of the abdomen shows complex cystic lesion in the liver, gallbladder wall thickening and mildly hyper echoic pancreas CT abdomen pelvis shows small bowel obstruction and hypodense liver lesion In ED, patient was given IV pain medication, fluids, antibiotics (likely secondary to the cholecystitis?) and antiemetic General surgery was made aware of the patient by the ED provider Plan: NG tube on low intermittent suction Consider doing small bowel series General Surgery consulted, appreciate recommendations N.p.o. Multimodal pain management IV Zofran as needed for nausea #Liver lesion Incidental finding well doing ultrasound and CT as noted above. Plan: Consider MRI imaging while inpatient versus outpatient #Psm-ptkvads-wftxxezxe type 2 diabetes Patient is on Ozempic 0.5 mg subcutaneous. Last A1c of 5.9 on 12/24/2024 Plan: Follow-up on morning A1c Sliding scale insulin every 6 hours #Pancreatitis? #Cholecystitis? Found on CT and ultrasound studies Low likelihood to be cholecystitis as the patient does not have elevated LFT and does not exhibit right upper quadrant tenderness Unlikely to be pancreatitis: Patient does not have an elevated lipase and does not have pathognomonic abdominal pain radiating to the back Plan: Monitor for any acute changes #Hypothyroidism Patient on levothyroxine 25 mcg Plan: Restart home medication #Hypertension Patient on valsartan 80 mg p.o. daily Plan: Restart home medication Health Maintenance: Lines: PIV, NG tube Diet: N.p.o. Bowel: Not needed GI prophylaxis: Not needed at this time DVT prophylaxis: Lovenox Dispo: NG tube bowel decompression for SBO, general surgery consulted appreciate recommendations Code: Full Patient seen and assessed with attending Dr. Brooks Lewis, DO PGY-2 Internal Medicine - GME Attending Provider Attestation/Addendum 69-year-old female with history of diverticular disease, history of bowel resection and colostomy, hysterectomy is being admitted small bowel for obstruction. Patient has an NG tube. I discussed with and supervised the resident physician who took care of this patient. I agree with the assessment and plan as above.
--- NOTE | 2025-04-07 05:11 | XR_ITS ---
Examination: Abdomen AP single view Technique: AP portable supine abdomen, single view Exam date and time: 04/07/2025 0544 hrs Findings: OGT in stomach satisfactory position. Moderate stool through out colon No free air Impression: OGT satisfactory position
[2025-04-07] MEDS: KETOROLAC INJ 30 MG/ML VIAL IVP ×2 (05:26→16:01)
[2025-04-07] MEDS: Magnesium Sulfate 4 GM Ivpb 4 GM/50 ML BAG IV (05:27)
[2025-04-07 05:39] LABS: Basophils # (Auto) 0.1 Thou/mm3 (0.0-0.2); Basophils % (Auto) 1 % (0-2.5); Eosinophils # (Auto) 0.1 Thou/mm3 (0.0-0.5); Eosinophils % (Auto) 1 % (0-10); Hematocrit 37.9 % (36.0-46.0); Hemoglobin 13.2 g/dL (12.0-16.0); Immature Granulocytes Auto 0.03 Thou/mm3 (0.00-0.00); Lymphocytes # (Auto) 2.7 Thou/mm3 (1.0-4.8); Lymphocytes % (Auto) 25 % (10-50); Mean Corpuscular HGB Conc 34.8 g/dl (31.0-37.0); Mean Corpuscular Hemoglobin 30.3 pg (25.0-35.0); Mean Corpuscular Volume 87 fL (80-100); Monocytes # (Auto) 0.6 Thou/mm3 (0.0-0.8); Monocytes % (Auto) 6 % (0-12); Neutrophils # (Auto) 7.1 Thou/mm3 (1.8-7.7); Neutrophils % (Auto) 67 % (37-80); Nucleated Red Blood Cell # 0.00 Thou/mm3 (0.00-0.00); Nucleated Red Blood Cell % 0 /100 WBC (0); Platelet Count 192 Thou/mm3 (140-440); RDW Standard Deviation 42.8 fL (36.4-46.3); Red Blood Count 4.35 Miln/mm3 (4.00-5.20); White Blood Count 10.6 Thou/mm3 (3.6-11.0)
[2025-04-07 05:55] LABS: Glucose Estimated Average 143 mg/dL (80-131); Hemoglobin A1C 6.6 % Hgb (4.8-6.0)
[2025-04-07 05:56] LABS: Alanine Aminotransferase 20 U/L (10-49); Albumin, Serum 3.9 gm/dL (3.4-4.8); Albumin/Globulin Ratio 1.8 (1.2-2.2); Alkaline Phosphatase 88 U/L (46-116); Anion Gap 10 (7-16); Aspartate Amino Transferase 18 U/L (0-34); BUN/Creatinine Ratio 32 Ratio (12-20); Bilirubin,Total 0.8 mg/dL (0.3-1.2); Blood Urea Nitrogen 16 mg/dL (9-23); Calcium 8.7 mg/dL (8.3-10.6); Calcium (Corrected) 8.8 mg/dL (8.5-10.1); Carbon Dioxide 28.9 mMol/L (20.0-31.0); Chloride 104 mMol/L (98-107); Creatinine (Component) 0.5 mg/dL (0.6-1.3); Estimated Creatinine Clearance 89.6 mL/min (>60); Globulin 2.2 gm/dL (2.3-3.5); Glucose 145 mg/dL (74-106); Osmolality,Calculated 289 (275-295); Potassium 3.7 mMol/L (3.4-5.1); Sodium 143 mMol/L (136-145); Total Protein 6.1 gm/dL (5.7-8.2); eGFR > 60 See Note
--- NOTE | 2025-04-07 07:47 | PD.SURCONS ---
HPI Consult details Consult date: 04/07/25 Reason for consultation narrative: Small bowel obstruction History of present illness: 69-year-old female with history of diabetes, hypertension, hyperlipidemia, hypothyroid, colovesical fistula status post sigmoid colectomy in the past presents with abdominal pain with nausea and vomiting. Her symptoms started few days ago with generalized abdominal pain that was initially intermittent. Her pain has been getting progressively worse and associated with multiple episodes of nausea and vomiting. CT scan revealed dilated loops of small bowel concerning for small bowel obstruction. An NG tube was placed and patient was admitted for further management. Review of Systems Constitutional Constitutional: Denies chills and Denies fever(s) Cardiovascular Cardiovascular: Denies chest pain Respiratory Respiratory: Denies cough Gastrointestinal Gastrointestinal: Reports abdominal pain, Reports nausea and Reports vomiting Genitourinary Genitourinary: Denies difficulty voiding Hematologic/Lymphatic Hematologic/Lymphatic: Denies easy bleeding and Denies easy bruising Past Medical History Surgical History OTHER SURGICAL HX: Appendectomy, sigmoid colectomy, TITUS/BSO, left breast lumpectomy, hemorrhoidectomy Social History SMOKING STATUS: Never smoker SUBSTANCE USE: does not use ALCOHOL: Never Meds Home Medications and Allergies Home Medications ?Medication ?Instructions ?Recorded ?Confirmed ?Type Levothyroxine * (SYNTHROID *) 25 mcg PO QDAY HYPOTHYROID #0 tabs 03/10/14 04/07/25 History valsartan 80 mg tablet 80 mg PO QDAY 06/28/24 04/07/25 History valacyclovir 1 gram tablet 1 mg PO QDAY 07/02/24 04/07/25 History atorvastatin 80 mg tablet 80 mg PO HS 04/07/25 04/07/25 History dicyclomine 20 mg tablet 20 mg PO DAILY PRN abdominal pain 04/07/25 04/07/25 History ergocalciferol (vitamin D2) 1,250 1,250 mcg PO QWEEK 04/07/25 04/07/25 History mcg (50,000 unit) capsule Allergies Allergy/AdvReac Type Severity Reaction Status Date / Time No Known Allergies Allergy Verified 07/02/24 11:43 Exam Vital Signs Temp Pulse Resp BP Pulse Ox O2 Del Method 97.9 F 60 18 125/67 94 L Room Air 04/07/25 07:02 04/07/25 07:02 04/07/25 07:02 04/07/25 07:02 04/07/25 07:02 04/07/25 07:02 Constitutional Constitutional: no acute distress Routine Abdominal Exam Comments: Abdomen is soft and minimally distended. She has hypoactive bowel sounds. No obvious evidence of hernia at this time Results Results: Laboratory Laboratory results: results reviewed Results: Imaging CT scan - abdomen: report reviewed and image reviewed CT scan - pelvis: report reviewed and image reviewed Assessment & Plan Problem List (1) SBO (small bowel obstruction): Status: Acute Additional Assessment Additional comments: There are no evidence of gallstones on ultrasound nor abdominal CT scan Plan Keep n.p.o. with NG tube decompression. Will obtain small bowel series
--- NOTE | 2025-04-07 07:56 | XR_ITS ---
Examination: Small bowel series Abdomen AP supine 3 views Date and time: April 07, 2025 0923 hours INDICATIONS: Abdominal pain and distention this week, small bowel obstruction pattern on CT scan abdomen pelvis this morning TECHNIQUE AND FINDINGS: Patient received 120 cc Gastrografin through the orogastric tube 1 minute, 30 minute, 1 AP supine abdomen films obtained Contrast remains in the stomach IMPRESSION: Initial small bowel series films Recommend follow-up abdomen films 12 noon, 2:00 PM, 4:00 PM, 6:00 PM
--- NOTE | 2025-04-07 08:15 | PC.NURSE ---
Dr. Ford in to see pt.
[2025-04-07] MEDS: RINGERS LACTATED 1000 ML 1,000 ML 80 ML IV (08:53)
[2025-04-07] MEDS: POTASSIUM CHL 10 mEq IVPB 10 MEQ/100 ML BAG 100 MEQ IV ×2 (08:54→09:54)
[2025-04-07] MEDS: ENOXAPARIN SOD INJ 40 MG/0.4 ML SYRINGE SC (09:04)
[2025-04-07] MEDS: MORPHINE SULF INJ 10 MG/ML VIAL IVP (13:48)
--- NOTE | 2025-04-07 13:59 | ESPR_ITS ---
<Statement entered by Pavel White MD - 04/07/25 16:17> Patient was seen and examined at the bedside. Patient presented with abdominal pain associated with nausea & vomiting. She was found to have Small bowel obstruction. She was started on Gastrografin series which will be followed up. Surgeon, Dr Ford recommended to follow-up on Gastrografin as well. Patient was found to have liver lesions and family was notified. I discussed and supervised with the statistics intern physician who took care of this patient. I personally saw and examined the patient. I agree with most of the assessment and plan. Disclaimer: Despite multiple revisions, due to the dictation software being used, the document bellow may not be free of grammatical errors including phonetic/typographic errors. However, this does not deter from our commitment to providing health care in the patient's best interest in mind. Plan of care discussed with attending Physician Dr. Araceli White MD PGY-3 Documentation for date of: 04/07/25 Subjective Subjective Interval history: No acute events overnight NG tube placed on low intermittent suction no n/v Today: Small bowel series with gastrogaffin. Exam Vital Signs Temp Pulse Resp BP Pulse Ox O2 Del Method 97.3 F 60 16 135/72 H 96 Room Air 04/07/25 11:58 04/07/25 11:58 04/07/25 11:58 04/07/25 11:58 04/07/25 11:58 04/07/25 11:58 Narrative Exam GENERAL: no acute distress, AAO x3, sitting upright in bed HEENT: Head AT/ NC. Mucous membranes dry. PERRL. NG tube in place NECK: Supple, no lymphadenopathy, no carotid bruits. CARDIOVASCULAR: RRR. Normal S1/S2, No m/r/g. No pitting edema of bilateral LEs. RESPIRATORY: CTAB. No wheezing, rhonchi, crackles. GASTROINTESTINAL: Abdomen soft, mildly tender epigastrum, no palpable masses. Bowel sounds present MUSCULOSKELETAL:? No cyanosis or edema, no visible joint swelling. NEUROLOGICAL: CN II-XII grossly intact. No focal deficits. Sensation intact, symmetric. PSYCHIATRIC: Awake and alert, not agitated, normal mood and affect. SKIN: No obvious rashes, no jaundice, normal turgor. Objective Labs 04/08/25 05:23 04/08/25 05:23 Labs: Laboratory Results - last 24 hr 04/07/25 04/07/25 04/07/25 01:50 01:51 05:22 WBC 11.9 H 10.6 RBC 4.82 4.35 Hgb 14.5 13.2 Hct 43.1 37.9 MCV 89 87 MCH 30.1 30.3 MCHC 33.6 34.8 RDW Std Deviation 43.8 42.8 Plt Count 210 192 Neut % (Auto) 72 67 Lymph % (Auto) 20 25 [place] % (Auto) 6 6 Eos % (Auto) 1 1 Baso % (Auto) 1 1 Neut # (Auto) 8.6 H 7.1 Lymph # (Auto) 2.4 2.7 [place] # (Auto) 0.7 0.6 Eos # (Auto) 0.1 0.1 Baso # (Auto) 0.1 0.1 Immature Gran # (Auto) 0.03 H 0.03 H Absolute Nucleated RBC 0.00 0.00 Immature Gran % 0 0 Nucleated RBC % 0 0 Sodium 143 143 Potassium 3.7 3.7 Chloride 102 104 Carbon Dioxide 29.6 28.9 Anion Gap 11 10 BUN 17 16 Creatinine 0.6 0.5 L Estim Creat Clear Calc 74.7 89.6 eGFR > 60 > 60 BUN/Creatinine Ratio 28 H 32 H Glucose [address] Glu mg/dL 143 H Hemoglobin A1c 6.6 H Calculated Osmolality 289 289 Calcium 9.3 8.7 Corrected Calcium 9.3 8.8 Magnesium 1.9 Total Bilirubin 0.6 0.8 Direct Bilirubin 0.1 AST 20 18 ALT 24 20 Alkaline Phosphatase 97 88 Total Protein 6.8 6.1 Albumin 4.4 3.9 D Globulin 2.4 2.2 L Albumin/Globulin Ratio 1.8 1.8 Lipase 25 Ur Collection Type Clean Catch Urine Color Lt-Yellow Urine Clarity Turbid A Urine pH 8.0 H Ur Specific [place] 1.020 Urine Protein Trace Urine Glucose (UA) Negative Urine Ketones Negative Urine Blood Negative Urine Nitrite Negative Urine Bilirubin Negative Urine Urobilinogen (Auto) Negative Ur Leukocyte Esterase Negative Urine RBC 1 Urine WBC 2 Ur Squamous Epith Cells 6 H Amorphous Crystals Present A Urine Bacteria None Ur Culture Indicated? Not Indicated Quality Measures Quality Measures none Advance care planning discussed with:: patient and child Assessment & Plan Assessment Current Active Medications: Generic Name Dose Route Start Last Admin Trade Name Dwightq PRN Reason Stop Dose Admin Acetaminophen 650 mg 04/07/25 04:55 Acetaminophen 325 Mg Tablet PO 05/07/25 04:54 Q6H PRN PAIN SCALE 1-3 (mild Dextrose 25 ml 04/07/25 04:55 Dextrose 50%-Water Inj 50 Ml Syringe IV 05/07/25 04:54 Q15MIN PRN BG 50-70 responsive npo pt Dextrose 50 ml 04/07/25 04:55 Dextrose 50%-Water Inj 50 Ml Syringe IV 05/07/25 04:54 Q15MIN PRN BG <50 OR BG <70 & pt unresponsive Enoxaparin Sodium 40 mg 04/07/25 09:00 04/07/25 09:04 Enoxaparin Sod Inj 40 Mg/0.4 Ml Syringe SC 04/21/25 08:59 40 mg QDAY ALYSSA Administration Glucagon 1 mg 04/07/25 04:55 Glucagon Inj 1 Mg Vial IM Q15MIN PRN BG <70, and no IV access Lactated Ringer's 1,000 mls @ 80 mls/hr 04/07/25 08:31 04/07/25 08:53 Lactated Ringers IV 04/08/25 09:30 80 mls/hr .[id number] ALYSSA Administration Insulin Human Lispro 0 unit 04/07/25 06:00 04/07/25 11:46 Insulin Lispro (Admelog) 1 Unit/0.01 Ml Unit SC 05/07/25 05:59 Not Given Q6HR [facility] Protocol Ketorolac Tromethamine 30 mg 04/07/25 05:02 04/07/25 05:26 Ketorolac Inj 30 Mg/Ml Vial IVP 04/12/25 05:01 30 mg Q6HR PRN Administration Pain 4-6 Levothyroxine Sodium 25 mcg 04/07/25 06:00 04/07/25 06:50 Levothyroxine Sodium 25 Mcg Tablet PO 05/07/25 05:59 Not Given ACBR ALYSSA Morphine Sulfate 1 mg 04/07/25 04:55 04/07/25 13:48 Morphine Sulf Inj 10 Mg/Ml Vial IVP 04/12/25 04:54 1 mg Q6H PRN Administration PAIN SCALE 7-10 (Severe Ondansetron HCl 4 mg 04/07/25 04:55 04/07/25 10:55 Ondansetron Inj 2 Mg/Ml Inj 2 Ml IVP 05/07/25 04:54 4 mg Q6H PRN Administration NAUSEA OR VOMITING Protocol Valsartan 80 mg 04/07/25 09:00 04/07/25 09:04 Valsartan 80 Mg Tablet PO 05/07/25 08:59 Not Given QDAY ALYSSA Plan 69-year-old female with past medical history of oun-nvzzqyx-stzxyuhpm type 2 diabetes, hypertension, hypothyroidism, diverticulosis presenting to the ED with abdominal pain was admitted for small bowel obstruction, currently NPO with NG tube clamped, undergoing small bowel series with Gastrogaffin. #SBO #Leukocytosis- resolved As noted above, patient has been having abdominal pain on and off for about a week which has progressively worsened Of note, patient has intra-abdominal surgeries as noted above On assessment, patient has hypoactive bowel sounds and guarding especially in the left upper and lower quadrant with noted tenderness Leukocytosis likely secondary to acutely ill status, reactive versus underlying infection, now resolved CT abdomen pelvis shows small bowel obstruction and hypodense liver lesion In ED, patient was given IV pain medication, fluids, antibiotics (likely secondary to the cholecystitis?) and antiemetic General surgery consulted Plan: NG tube on low intermittent suction Ongoing small bowel series General Surgery consulted, appreciate recommendations, recommend small bowel series. N.p.o. IV fluids: LR 80ml/hr Multimodal pain management APAP 650 prn keterolac 30mg IVP q6hr prn Morphiene 1mg IVP q6hr prn IV Zofran as needed for nausea #Liver cystic lesion with septations Incidental finding during ultrasound and CT as noted above. Plan: MRI pre and post contrast pending completion of small bowel series and resolution of sbo #Rfs-ptxjwnb-mrrmnhvmo type 2 diabetes Patient is on Ozempic 0.5 mg subcutaneous. Last A1c of 5.9 on 12/24/2024 Plan: A1c 6.6% Sliding scale insulin every 6 hours #query Pancreatitis #query Cholecystitis Found on CT and Ultrasound of the abdomen shows complex cystic lesion in the liver, gallbladder wall thickening and mildly hyper echoic pancreas Low likelihood to be cholecystitis as the patient does not have elevated LFT and does not exhibit right upper quadrant tenderness Unlikely to be pancreatitis: Patient does not have an elevated lipase and does not have pathognomonic abdominal pain radiating to the back Plan: CTM clinical symptoms LFTs trend #Hypothyroidism Patient on levothyroxine 25 mcg Plan: holding home medication #Hypertension Patient on valsartan 80 mg p.o. daily Plan: holding home medication #Herpes pt reports being sexually active with intermittent herpetic outbreaks -holding valacyclovir 1mg every other day Health Maintenance: Lines: PIV (LR 80ml/hr maintenance), NG tube Diet: N.p.o. Bowel: Not needed GI prophylaxis: Not needed at this time DVT prophylaxis: Lovenox Dispo: NG tube clamped, pending completion of small bowel series Code: Full Case discussed with my senior resident Dr. White Case discussed with my attending Dr. Araceli Francois MD PGY-1 Attending Provider Attestation/Addendum Mikaela Canales DO, attest that I was physically present for the veloz portions of the service and evaluated the patient with the resident and I reviewed and discussed the case with the resident and agree with the resident's findings and plans of care as documented above Patient seen and eval this a.m. Patient found to have SBO and currently has NG tube clamped for Gastrografin small bowel follow-through. Patient states that her last bowel movement yesterday. She has never had similar episode in the past. Will follow-up with small bowel series. Spoke with patient's PCP. Patient has no known liver issues and will need MRI outpatient. Family made aware.
[2025-04-08] VITALS: BP 119/61; PULSE 63; RESP 17; TEMP 36.1; O2SAT 95
[2025-04-08] MEDS: RINGERS LACTATED 1000 ML 1,000 ML 80 ML IV (00:01)
[2025-04-08 04:00] VITALS: BP 126/67; PULSE 57; RESP 16; TEMP 36.1; O2SAT 97
[2025-04-08 06:11] LABS: Basophils # (Auto) 0.0 Thou/mm3 (0.0-0.2); Basophils % (Auto) 1 % (0-2.5); Eosinophils # (Auto) 0.2 Thou/mm3 (0.0-0.5); Eosinophils % (Auto) 4 % (0-10); Hematocrit 35.5 % (36.0-46.0); Hemoglobin 11.6 g/dL (12.0-16.0); Immature Granulocytes Auto 0.02 Thou/mm3 (0.00-0.00); Lymphocytes # (Auto) 2.0 Thou/mm3 (1.0-4.8); Lymphocytes % (Auto) 31 % (10-50); Mean Corpuscular HGB Conc 32.7 g/dl (31.0-37.0); Mean Corpuscular Hemoglobin 30.4 pg (25.0-35.0); Mean Corpuscular Volume 93 fL (80-100); Monocytes # (Auto) 0.6 Thou/mm3 (0.0-0.8); Monocytes % (Auto) 9 % (0-12); Neutrophils # (Auto) 3.5 Thou/mm3 (1.8-7.7); Neutrophils % (Auto) 56 % (37-80); Nucleated Red Blood Cell # 0.00 Thou/mm3 (0.00-0.00); Nucleated Red Blood Cell % 0 /100 WBC (0); Platelet Count 160 Thou/mm3 (140-440); RDW Standard Deviation 46.9 fL (36.4-46.3); Red Blood Count 3.81 Miln/mm3 (4.00-5.20); White Blood Count 6.4 Thou/mm3 (3.6-11.0)
[2025-04-08] MEDS: LEVOTHYROXINE SODIUM 25 MCG TABLET PO (06:17)
[2025-04-08 06:46] LABS: Alanine Aminotransferase 13 U/L (10-49); Albumin, Serum 3.3 gm/dL (3.4-4.8); Albumin/Globulin Ratio 1.7 (1.2-2.2); Alkaline Phosphatase 71 U/L (46-116); Anion Gap 8 (7-16); Aspartate Amino Transferase 14 U/L (0-34); BUN/Creatinine Ratio 40 Ratio (12-20); Bilirubin,Total 0.9 mg/dL (0.3-1.2); Blood Urea Nitrogen 16 mg/dL (9-23); Calcium 8.4 mg/dL (8.3-10.6); Calcium (Corrected) 9.0 mg/dL (8.5-10.1); Carbon Dioxide 29.5 mMol/L (20.0-31.0); Chloride 108 mMol/L (98-107); Creatinine (Component) 0.4 mg/dL (0.6-1.3); Estimated Creatinine Clearance 113.6 mL/min (>60); Globulin 2.0 gm/dL (2.3-3.5); Glucose 100 mg/dL (74-106); Magnesium 1.8 mg/dL (1.6-2.6); Osmolality,Calculated 289 (275-295); Phosphorous 3.8 mg/dL (2.4-5.1); Potassium 3.7 mMol/L (3.4-5.1); Sodium 145 mMol/L (136-145); Total Protein 5.3 gm/dL (5.7-8.2); eGFR > 60 See Note
[2025-04-08 07:35] VITALS: BP 127/60; PULSE 59; RESP 17; TEMP 36.1; O2SAT 95
--- NOTE | 2025-04-08 07:47 | ESDS_ITS ---
<Statement entered by Mikaela Charles DO - 04/08/25 16:53> I, Mikaela Charles DO, attest that I was physically present for the veloz portions of the service and evaluated the patient with the resident and I reviewed and discussed the case with the resident and agree with the resident's findings and plans of care as documented above <Statement entered by Pavel White MD - 04/08/25 09:22> I discussed and supervised with the intern architect physician who took care of this patient. I personally saw and examined the patient. I agree with most of the assessment and plan. Disclaimer: Despite multiple revisions, due to the dictation software being used, the document bellow may not be free of grammatical errors including phonetic/typographic errors. However, this does not deter from our commitment to providing health care in the patient's best interest in mind. Plan of care discussed with attending Physician Dr. Araceli White MD PGY-3 Planned Discharge Date 04/08/25 DS: Providers Provider Date of admission: 04/07/25 05:50 Primary care physician: Physician Darlene Primary/Family Admitting Provider: Atlaf Guy MD Attending Provider on Admission: Mikaela Charles DO Consults: 04/07/25 04:29 Consult to General Surgery Stat Comment: SBO CHOLECYSTITIS Consulting Provider: Kaur Ford Attending Provider on DC: Dr. Charles Discharging Provider: RESIDENT Chandrakant DS: Diagnosis Problem List Completed Was Problem List Reviewed/Reconciled?: Yes Hospital Course Hospital Course Hospital course: Hospital Course Ms. Braden 69-year-old female with past medical history of xze-eztwkdz-ypqqnbftr type 2 diabetes, hypertension, hypothyroidism, diverticulosis presenting to the ED with abdominal pain was admitted for small bowel obstruction, was kept NPO, NG tube was placed on low intermittent suction, Surgery was consulted, who recomended undergoing small bowel series with gastrogaffin. serial KUBs revealed resolution of SBO. on intake CTAP revealed cystic liver, radiologist reccomended MRI pre and post contrast in the outpatient setting. Pt had BMs and endorsed passing gas. She tolerated clear liquid diet and advanced to full liquid, and then to regular diet without n/v. Patient stable and medically cleared for discharge Diagnoses #SBO- resolved #Leukocytosis- resolved #Liver cystic lesion with septations #Sad-hmdfovn-zcugdrhxo type 2 diabetes #Hypothyroidism #Hypertension #Herpes Discharge instructions Take Miralax powder packet as needed for constipation Hold ozempic until you see your PCP for at least a week You were found to have cystic liver lesions in the CT abdomen, you would need to follow up with MRI abdomen pre and post contrast as outpatient after getting referral from your PCP Take all home medications as prescribed Follow up with your PCP as outpatient within a week In case of emergency call 911 or come back to the ED Case discussed with my senior resident Dr. White Case discussed with my attending Dr. Araceli Francois MD PGY-1 Time Spent with Patient Time attestation: Total time spent providing and/or coordinating discharge services: Time spent: Greater than 30 minutes Exam Vital Signs Temp Pulse Resp BP Pulse Ox O2 Del Method O2 Flow Rate 97.0 F 59 L 17 127/60 95 Nasal Cannula 1 04/08/25 07:35 04/08/25 07:35 04/08/25 07:35 04/08/25 07:35 04/08/25 07:35 04/08/25 07:35 04/08/25 07:35 Narrative Exam GENERAL: no acute distress, AAO x3, comfortably laying in bed HEENT: Head AT/ NC. Mucous membranes dry. PERRL. NECK: Supple, no lymphadenopathy, no carotid bruits. CARDIOVASCULAR: RRR. Normal S1/S2, No m/r/g. No pitting edema of bilateral LEs. RESPIRATORY: CTAB. No wheezing, rhonchi, crackles. GASTROINTESTINAL: Abdomen soft, mildly tender to epigastrum no palpable masses. Bowel sounds present MUSCULOSKELETAL:? No cyanosis or edema, no visible joint swelling. NEUROLOGICAL: CN II-XII grossly intact. No focal deficits. Sensation intact, symmetric. PSYCHIATRIC: Awake and alert, not agitated, normal mood and affect. SKIN: No obvious rashes, no jaundice, normal turgor. Discharge Plan Plan Patient Disposition: HOME (Self Care) Patient condition on transfer: Stable Care Plan Goals: Take Miralax powder packet as needed for constipation Hold ozempic until you see your PCP for atleast a week You were found to have liver lesions in the CT abdomen, you would need to follow up with MRI abdomen pre and post contrast as outpatient after getting referral f rom your PCP Take all home medications as prescribed Follow up with your PCP as outpatient within a week In case of emergency call 911 or come back to the ED Prescriptions/Referrals Prescriptions/Med Rec: New polyethylene glycol 3350 [Miralax] 17 gram powder in packet 17 g PO QDAY PRN (Reason: constipation) Qty: 30 0RF Continued Levothyroxine * (SYNTHROID *) 25 MCG tablet 25 mcg PO QDAY Qty: 0 valsartan 80 mg Tablet 80 mg PO QDAY valacyclovir 1 gram tablet 1 mg PO QDAY Patient Comments: TAKE 1 TABLET BY MOUTH EVERY DAY dicyclomine 20 mg tablet 20 mg PO DAILY PRN (Reason: abdominal pain) atorvastatin 80 mg tablet 80 mg PO HS Patient Comments: TAKE 1 TABLET BY MOUTH EVERY DAY ergocalciferol (vitamin D2) 1,250 mcg (50,000 unit) capsule 1,250 mcg PO QWEEK Patient Comments: TAKE 1 CAPSULE BY MOUTH WEEKLY D2 Discontinued atorvastatin 20 mg Tablet 20 mg PO QDAY dicyclomine 10 mg Capsule 10 mg PO DAILY PRN (Reason: Abdominal Distention) Ozempic 0.25 mg or 0.5 mg (2 mg/3 mL) pen injector 0.25 mg SUBCUT QWEEK Patient Comments: INJECT 0.5MG SUBCUTANEOUSLY ONCE WEEKLY Referrals: No Primary/Family,Physician [Primary Care Provider] - Patient/Caregiver Discharge Instructions Education Materials: Small Bowel Obstruction Print Language: Kyrgyz Stand Alone Forms: [facility]ie Award Info., Patient Portal Info Letter Discharge Order Discharge Orders: Discharge (Routine); Ordered 04/08/25 Ordered By: Braden Bueno Quality Discharge Quality Measures VTE prophylaxis
--- NOTE | 2025-04-08 07:47 | PD.RESPRO ---
Documentation for date of: 04/08/25 Exam Vital Signs Temp Pulse Resp BP Pulse Ox O2 Del Method O2 Flow Rate 97.0 F 59 L 17 127/60 95 Nasal Cannula 1 04/08/25 07:35 04/08/25 07:35 04/08/25 07:35 04/08/25 07:35 04/08/25 07:35 04/08/25 07:35 04/08/25 07:35 Objective Labs 04/08/25 05:23 04/08/25 05:23 Labs: Laboratory Results - last 24 hr 04/08/25 05:23 WBC 6.4 RBC 3.81 L Hgb 11.6 L Hct 35.5 L MCV 93 MCH 30.4 MCHC 32.7 RDW Std Deviation 46.9 H Plt Count 160 D Neut % (Auto) 56 Lymph % (Auto) 31 Edgar % (Auto) 9 Eos % (Auto) 4 Baso % (Auto) 1 Neut # (Auto) 3.5 Lymph # (Auto) 2.0 Edgar # (Auto) 0.6 Eos # (Auto) 0.2 Baso # (Auto) 0.0 Immature Gran # (Auto) 0.02 H Absolute Nucleated RBC 0.00 Immature Gran % 0 Nucleated RBC % 0 Sodium 145 Potassium 3.7 Chloride 108 H Carbon Dioxide 29.5 Anion Gap 8 BUN 16 Creatinine 0.4 L Estim Creat Clear Calc 113.6 eGFR > 60 BUN/Creatinine Ratio 40 H Glucose 100 Calculated Osmolality 289 Calcium 8.4 Corrected Calcium 9.0 Phosphorus 3.8 Magnesium 1.8 Total Bilirubin 0.9 AST 14 ALT 13 Alkaline Phosphatase 71 Total Protein 5.3 L Albumin 3.3 L D Globulin 2.0 L Albumin/Globulin Ratio 1.7 Quality Measures Quality Measures none Assessment & Plan Assessment Current Active Medications: Generic Name Dose Route Start Last Admin Trade Name Freq PRN Reason Stop Dose Admin Acetaminophen 650 mg 04/07/25 04:55 Acetaminophen 325 Mg Tablet PO 05/07/25 04:54 Q6H PRN PAIN SCALE 1-3 (mild Dextrose 25 ml 04/07/25 04:55 Dextrose 50%-Water Inj 50 Ml Syringe IV 05/07/25 04:54 Q15MIN PRN BG 50-70 responsive npo pt Dextrose 50 ml 04/07/25 04:55 Dextrose 50%-Water Inj 50 Ml Syringe IV 05/07/25 04:54 Q15MIN PRN BG <50 OR BG <70 & pt unresponsive Enoxaparin Sodium 40 mg 04/07/25 09:00 04/07/25 09:04 Enoxaparin Sod Inj 40 Mg/0.4 Ml Syringe SC 04/21/25 08:59 40 mg QDAY ALYSSA Administration Glucagon 1 mg 04/07/25 04:55 Glucagon Inj 1 Mg Vial IM Q15MIN PRN BG <70, and no IV access Lactated Ringer's 1,000 mls @ 80 mls/hr 04/07/25 08:31 04/08/25 00:01 Lactated Ringers IV 04/08/25 09:30 80 mls/hr .[id number] ALYSSA Administration Magnesium Sulfate 2 gm in 50 mls @ 25 mls/hr 04/08/25 07:46 Magnesium Sulfate Ivpb IV 04/08/25 09:45 X1 ONE Insulin Human Lispro 0 unit 04/07/25 21:00 04/07/25 22:00 Insulin Lispro (Admelog) 1 Unit/0.01 Ml Unit SC 05/07/25 20:59 Not Given ACHS [facility] Protocol Ketorolac Tromethamine 30 mg 04/07/25 05:02 04/07/25 16:01 Ketorolac Inj 30 Mg/Ml Vial IVP 04/12/25 05:01 30 mg Q6HR PRN Administration Pain 4-6 Levothyroxine Sodium 25 mcg 04/07/25 06:00 04/08/25 06:17 Levothyroxine Sodium 25 Mcg Tablet PO 05/07/25 05:59 25 mcg ACBR ALYSSA Administration Morphine Sulfate 1 mg 04/07/25 04:55 04/07/25 13:48 Morphine Sulf Inj 10 Mg/Ml Vial IVP 04/12/25 04:54 1 mg Q6H PRN Administration PAIN SCALE 7-10 (Severe Ondansetron HCl 4 mg 04/07/25 04:55 04/07/25 10:55 Ondansetron Inj 2 Mg/Ml Inj 2 Ml IVP 05/07/25 04:54 4 mg Q6H PRN Administration NAUSEA OR VOMITING Protocol Potassium Chloride 20 meq 04/08/25 07:46 Potassium Chloride 10% 20 Meq/15 Ml Udc PO 04/08/25 07:47 X1 ONE Valsartan 80 mg 04/07/25 09:00 07/21/25 09:04 Valsartan 80 Mg Tablet PO 05/07/25 08:59 Not Given QDAY ALYSSA
[2025-04-08] MEDS: Magnesium Sulfate 2 GM Ivpb 2 GM/50 ML BAG IV (09:25)
[2025-04-08] MEDS: ENOXAPARIN SOD INJ 40 MG/0.4 ML SYRINGE SC (09:25)
[2025-04-08] MEDS: POTASSIUM CHLORIDE 10% 20 MEQ/15 ML UDC PO (09:25)
--- NOTE | 2025-04-08 09:29 | PC.SS ---
Patient is a 69 year old female who presents to the hospital for SBO. RESEARCH ANIMAL ATTENDANT made face-to face contact with patient. RESEARCH ANIMAL ATTENDANT introduced self, role, and reason for visit. Patient was alert and oriented to self, location, and situation. Patient confirmed demographic information and reports she lives alone. Patient reported that prior to visit she did not use any DME and can ambulate independently. Patient reported she is unemployed. Pt. stated that her PCP is Dr. Dacosta and her pharmacy is [facility]. Pt. reported that her medical decision maker in the event she is unable to make her own medical decisions would be her daughter, Yara Jaskaran [phone]. Pt. stated that once medically discharged she will return home and daughter will provide transportation. D/C: Home, daughter providing transportation. Alternate decision maker: Yara Jessica [phone] PCP: Dr. Dacosta
[2025-04-08 09:39] VITALS: BP 129/64; PULSE 63
[2025-04-08] MEDS: VALSARTAN 80 MG TABLET PO (09:39)
--- NOTE | 2025-04-08 11:11 | PD.SURPROG ---
Documentation for date of: 04/08/25 Subjective Subjective Narrative: Patient is seen and examined. Her pain is improving. Small bowel series did not show evidence of bowel obstruction and she had bowel movements Exam Vital Signs Temp Pulse Resp BP Pulse Ox O2 Del Method O2 Flow Rate 97.0 F 63 17 129/64 95 Nasal Cannula 1 04/08/25 07:35 04/08/25 09:39 04/08/25 07:35 04/08/25 09:39 04/08/25 07:35 04/08/25 07:35 04/08/25 07:35 Constitutional Constitutional: no acute distress Routine Abdominal Exam Comments: Abdomen is soft and minimally distended, bowel sounds are active Assessment & Plan Assessment Additional comments: Small bowel obstruction resolving Plan Patient can be discharged when tolerating soft diet and continues to have bowel movement
[2025-04-08 11:17] VITALS: BP 125/70; PULSE 61; RESP 17; TEMP 36.6; O2SAT 93
== END 2025-04-08 14:48 | disposition home or self-care (01) | DRG 390 ==
LOC: SERX 04:31 → SERHOLD 05:51 → S3NX 08:02
PROVIDERS: Admitting Provider Internal Medicine; Emergency Provider Emergency Medicine; Visit Provider Internal Medicine
DX: K56.609 Unspecified intestinal obstruction, unspecified as to partial versus complete obstruction (principal); I10 Essential (primary) hypertension; E11.9 Type 2 diabetes mellitus without complications; E03.9 Hypothyroidism, unspecified; K76.9 Liver disease, unspecified; B00.9 Herpesviral infection, unspecified; E78.5 Hyperlipidemia, unspecified; Z79.899 Other long term (current) drug therapy; Z90.49 Acquired absence of other specified parts of digestive tract; Z90.710 Acquired absence of both cervix and uterus; Z93.3 Colostomy status
CPT/HCPCS: 36415; 74018; 74176; 74250; 76705; 80053; 81001; 82248; 83036; 83690; 83735; 84100; 85025; 87400; 87811; 96361; 96365; 96375; 96376; 99285; A4649; J1650; J1885; J2270; J2405; J2543; J3475; J3480; J7030; J7120; A9270

== ENCOUNTER → 2025-04-18 | Outpatient (CLI) | payer MEDICARE, MEDICAID, SELFPAY ==
--- NOTE | 2025-04-18 17:05 | XR_ITS ---
Examination: Abdomen AP single view Technique: AP portable supine abdomen, single view Exam date and time: April 18, 2025 1708 hours INDICATIONS: Abdominal pain and vomiting beginning one week ago. FINDINGS: Surgical clips left abdomen Moderate stool throughout the colon. No obstruction. No free air [id number] elevation right hemidiaphragm IMPRESSION: Nonobstructive bowel gas pattern
== END | disposition home or self-care (01) ==
LOC: SDIM 16:54
PROVIDERS: PCP Internal Medicine; Referring Provider Internal Medicine; Visit Provider Internal Medicine
DX: K56.51 Intestinal adhesions [bands], with partial obstruction (principal)
CPT/HCPCS: 74018

== ENCOUNTER → 2025-05-27 | Outpatient (CLI) | payer MEDICARE, MEDICAID, SELFPAY ==
[2025-05-27 08:58] LABS: Alanine Aminotransferase 14 U/L (10-49); Albumin, Serum 4.0 gm/dL (3.4-4.8); Alkaline Phosphatase 96 U/L (46-116); Anion Gap 11 (7-16); Aspartate Amino Transferase 19 U/L (0-34); BUN/Creatinine Ratio 30 Ratio (12-20); Bilirubin,Direct 0.1 mg/dL (0.0-0.3); Bilirubin,Total 0.6 mg/dL (0.3-1.2); Blood Urea Nitrogen 15 mg/dL (9-23); Calcium 9.2 mg/dL (8.3-10.6); Carbon Dioxide 27.8 mMol/L (20.0-31.0); Chloride 101 mMol/L (98-107); Creatinine (Component) 0.5 mg/dL (0.6-1.3); Glucose 95 mg/dL (74-106); Osmolality,Calculated 280 (275-295); Phosphorous 3.7 mg/dL (2.4-5.1); Potassium 3.6 mMol/L (3.4-5.1); Sodium 140 mMol/L (136-145); Total Protein 6.5 gm/dL (5.7-8.2); eGFR > 60 See Note
[2025-05-27 09:03] LABS: Creatinine MALB Rnd Ur 92 mg/dL (30-125); Microalbumin Creat Ratio 3 mg/gCrea (<30); Microalbumin, Random Urine 3 mg/L (0-300)
== END | disposition home or self-care (01) ==
LOC: COPL 07:17
PROVIDERS: PCP Internal Medicine; Referring Provider Internal Medicine; Visit Provider Internal Medicine
DX: E11.9 Type 2 diabetes mellitus without complications (principal); I10 Essential (primary) hypertension
CPT/HCPCS: 36415; 80048; 80076; 82043; 82570; 84100

== ENCOUNTER → 2025-06-03 | Outpatient (CLI) | payer MEDICARE, MEDICAID, SELFPAY ==
--- NOTE | 2025-06-03 09:16 | XR_ITS ---
Examination: MRI abdomen with intravenous contrast. MRI abdomen without intravenous contrast. Date and time of exam: June 03, 2025 1020 hours INDICATIONS: Abdominal pain 3 weeks, 34 mm liver lesion on CT abdomen pelvis April 07, 2025 Technique: Multiple axial, sagittal and coronal sections of the abdomen obtained. Transverse images, TR 6020, TE 107. T1 weighted transverse images, TR 582, TE 9.5. T2-weighted sagittal images, TR 4000, TE 105. T2-weighted sagittal images, TR 4000, TE 5. Coronal images, TR 4210, TE 107. Axial and coronal images are obtained post 20 cc intravenous injection, gadolinium. Findings: 5 cm septated liver lesion with mildly increased signal on the precontrast T2-weighted images in the lower posterior right lobe the liver Postcontrast images demonstrate no abnormal enhancement of this mass Spleen is not enlarged Normal common hepatic common bile duct, no gallstones No pancreatic mass No hydronephrosis IMPRESSION: Findings most consistent with benign right lobe liver cyst, recommend 6 month follow-up hepatic sonography
== END | disposition home or self-care (01) ==
LOC: SMRI 08:43
PROVIDERS: PCP Internal Medicine; Referring Provider Internal Medicine; Visit Provider Internal Medicine
DX: K76.89 Other specified diseases of liver (principal)
CPT/HCPCS: 74183; A9577

== ENCOUNTER → 2025-06-18 | Outpatient (CLI) | payer MEDICARE, MEDICAID, SELFPAY ==
--- NOTE | 2025-06-18 13:30 | XR_ITS ---
Examination: Screening digital mammography, bilateral Computer aided detection 3-D breast Tomosynthesis, bilateral Date and time of exam: June 18, 2025, 1341 hours, compared to mammograms dating to April 16, 2024 Indication: Screening Technique: Nonmagnified MLO, CC views of the breasts to been obtained, reconstructed from 3-D Tomosynthesis images. R2 computer aided detection program utilized for evaluation of suspicious masses and/or abnormal calcifications. 3-D Tomosynthesis images obtained. Findings: The breasts are heterogeneously dense, which may obscure small masses Benign calcifications. No interval suspicious masses Impression: BI-RADS category II: Benign Findings. Recommend 1 year follow-up mammogram.
== END | disposition home or self-care (01) ==
PROVIDERS: PCP Internal Medicine; Referring Provider Internal Medicine; Visit Provider Internal Medicine
DX: Z12.31 Encounter for screening mammogram for malignant neoplasm of breast (principal); R92.323 Mammographic fibroglandular density, bilateral breasts; R92.1 Mammographic calcification found on diagnostic imaging of breast
CPT/HCPCS: 77063; 77067

== ENCOUNTER → 2025-08-04 | Outpatient (CLI) | payer MEDICARE, MEDICAID, SELFPAY ==
[2025-08-04 11:26] LABS: Basophils # (Auto) 0.1 Thou/mm3 (0.0-0.2); Basophils % (Auto) 1 % (0-2.5); Eosinophils # (Auto) 0.1 Thou/mm3 (0.0-0.5); Eosinophils % (Auto) 1 % (0-10); Hematocrit 40.7 % (36.0-46.0); Hemoglobin 14.2 g/dL (12.0-16.0); Immature Granulocytes Auto 0.01 Thou/mm3 (0.00-0.00); Lymphocytes # (Auto) 2.5 Thou/mm3 (1.0-4.8); Lymphocytes % (Auto) 36 % (10-50); Mean Corpuscular HGB Conc 34.9 g/dl (31.0-37.0); Mean Corpuscular Hemoglobin 30.0 pg (25.0-35.0); Mean Corpuscular Volume 86 fL (80-100); Monocytes # (Auto) 0.5 Thou/mm3 (0.0-0.8); Monocytes % (Auto) 7 % (0-12); Neutrophils # (Auto) 3.8 Thou/mm3 (1.8-7.7); Neutrophils % (Auto) 55 % (37-80); Nucleated Red Blood Cell # 0.00 Thou/mm3 (0.00-0.00); Nucleated Red Blood Cell % 0 /100 WBC (0); Platelet Count 263 Thou/mm3 (140-440); RDW Standard Deviation 39.2 fL (36.4-46.3); Red Blood Count 4.73 Miln/mm3 (4.00-5.20); White Blood Count 7.0 Thou/mm3 (3.6-11.0)
[2025-08-04 11:34] LABS: AFP Non-Pregnant 5.10 ng/mL (<8.10)
[2025-08-04 11:40] LABS: Alanine Aminotransferase 24 U/L (10-49); Albumin, Serum 4.7 gm/dL (3.4-4.8); Albumin/Globulin Ratio 2.1 (1.2-2.2); Alkaline Phosphatase 111 U/L (46-116); Anion Gap 9 (7-16); Aspartate Amino Transferase 20 U/L (0-34); BUN/Creatinine Ratio 26 Ratio (12-20); Bilirubin,Total 0.5 mg/dL (0.3-1.2); Blood Urea Nitrogen 13 mg/dL (9-23); Calcium 9.8 mg/dL (8.3-10.6); Calcium (Corrected) 9.8 mg/dL (8.5-10.1); Carbon Dioxide 27.9 mMol/L (20.0-31.0); Chloride 102 mMol/L (98-107); Creatinine (Component) 0.5 mg/dL (0.6-1.3); Globulin 2.2 gm/dL (2.3-3.5); Glucose 104 mg/dL (74-106); Osmolality,Calculated 277 (275-295); Potassium 4.0 mMol/L (3.4-5.1); Sodium 139 mMol/L (136-145); Total Protein 6.9 gm/dL (5.7-8.2); eGFR > 60 See Note
== END | disposition home or self-care (01) ==
PROVIDERS: PCP Internal Medicine; Referring Provider Specialist; Visit Provider Specialist
DX: E78.9 Disorder of lipoprotein metabolism, unspecified (principal)
CPT/HCPCS: 36415; 80053; 82105; 85025